=== PATIENT | female | born 1940 | race African-American/Black ===

== ENCOUNTER 2023-12-03 09:32 | Emergency (ER) | payer OTHER ==
[2023-12-03 10:03] VITALS: BP 124/39; PULSE 46; RESP 23; TEMP 97.5; BMI 23.2
[2023-12-03 11:07] LABS: BASO % 0.1 % (0-2.0); EOS % 0.5 % (0-4.5); HEMOGLOBIN 12.6 GM/dL (10.7-15.3); LYMPH % 8.5 % (8-40); MCH 28.5 pg (25.7-33.7); MCHC 33.2 g/dl (32.0-36.0); MEAN CELL VOLUME 85.8 fl (80-96); MEAN PLT VOLUME 8.8 fl (7.5-11.1); MONO % 6.6 % (3.8-10.2); NEUT % 84.3 % (42.8-82.8); PLATELET COUNT 230 10^3/uL (134-434); RBC 4.43 M/mm3 (3.60-5.2); RDW 14.9 % (11.6-15.6); WHITE BLOOD COUNT 18.8 K/mm3 (4.0-10.0)
[2023-12-03 11:30] LABS: VENOUS BASE EXCESS 1.4 mmol/L (-2-2); VENOUS PCO2 48.8 mmHg (38-52); VENOUS PH 7.368 (7.310-7.410)
[2023-12-03 11:43] LABS: POTASSIUM 3.7 mmol/L (3.5-5.1)
[2023-12-03 11:45] LABS: ALBUMIN 3.7 g/dl (3.4-5.0); CALCIUM 9.3 mg/dL (8.5-10.1)
[2023-12-03 11:47] LABS: BLOOD UREA NITROGEN 36.4 mg/dL (7-18); MAGNESIUM 2.2 mg/dL (1.8-2.4)
[2023-12-03 11:50] LABS: BILIRUBIN,TOTAL 0.6 mg/dL (0.2-1); CREATININE 0.8 mg/dL (0.55-1.3); TOT PROT 6.9 g/dl (6.4-8.2)
[2023-12-03] MEDS: SODIUM CHLORIDE 1,000 ML IV STA (12:58)
[2023-12-03 13:22] LABS: EPI CELLS 24 /uL (0-25.1); HYALINE CASTS 10 /uL (0-3.1); URINE APPEARANCE TURBID; URINE BACTERIA 5932 /uL (0-1359); URINE BILIRUBIN NEGATIVE (NEGATIVE); URINE COLOR YELLOW; URINE GLUCOSE (UA) NEGATIVE (NEGATIVE); URINE KETONE NEGATIVE (NEGATIVE); URINE LEUK ESTERASE 2+ (NEGATIVE); URINE NITRITE NEGATIVE (NEGATIVE); URINE PROTEIN 2+ (NEGATIVE); URINE UROBILINOGEN 0.2 mg/dL (0.2-1.0); URINE WBC 425 /uL (0-25.8)
[2023-12-03] MEDS ORDERED: CEFTRIAXONE 1 GM/50 ML BAG ONE (13:46)
[2023-12-03] MEDS: CEFTRIAXONE 1 GM in DEXTROSE 5%-WATER - 100 ML IVPB ONE (13:51)
[2023-12-03 16:23] LABS: URINE RBC 100.6 /uL (0-23.9); YEAST NONE SEEN (NEGATIVE)
== END 2023-12-03 15:04 | disposition home or self-care (01) ==
LOC: JER 09:32
PROC: 3E03329 Introduction of Other Anti-infective into Peripheral Vein, Percutaneous Approach (ICD-10-PCS; principal; 2023-12-03)
PROC: 3E0337Z Introduction of Electrolytic and Water Balance Substance into Peripheral Vein, Percutaneous Approach (ICD-10-PCS; 2023-12-03)
DX: N39.0 Urinary tract infection, site not specified (principal); R11.10 Vomiting, unspecified; R19.7 Diarrhea, unspecified; R53.1 Weakness; R00.1 Bradycardia, unspecified; Z20.822 Contact with and (suspected) exposure to COVID-19
CPT/HCPCS: 0241U-QW; 36415; 71045-TC-FY; 80053; 81003; 82803; 82962; 83735; 84484; 85025; 87086; 87186; 93005; 93010; 96361; 96365; 99285-25